=== PATIENT | female | born 1985 | race African-American/Black ===

== ENCOUNTER 2017-09-02 10:45 | Emergency (ER) | payer OTHER ==
[~2017-09-02] VITALS: Ht 167.6 cm; Wt 70.8 kg
[~2017-09-02 10:45] MED LIST: COLACE100 MG PO; DILAUDID2 M1; PERCOCET 5-3251 EACH PO; PHENERGAN 25 MG25 M1 PO
[2017-09-02 11:51] LABS: URINE BILIRUBIN NEGATIVE (Negative); URINE BLOOD NEGATIVE (Negative); URINE CLARITY CLEAR; URINE COLOR YELLOW; URINE GLUCOSE-RANDOM* NEGATIVE (Negative); URINE KETONES NEGATIVE (Negative); URINE LEUKOCYTES NEGATIVE (Negative); URINE NITRITE NEGATIVE (Negative); URINE PROTEIN (DIPSTICK) NEGATIVE (Negative); URINE SPECIFIC GRAVITY 1.015 (1.005-1.035); URINE UROBILINOGEN 0.2 E.U./dl (0.2-1.0)
[2017-09-02 12:09] LABS: ABSOLUTE NEUTROPHILS 6.9 thou/uL (1.4-8.2); BASOPHILS 0.4 % (0.0-2.0); HEMATOCRIT 44.1 % (37.0-47.0); HEMOGLOBIN 14.9 gm/dL (12.0-15.0); LYMPHOCYTES 22.1 % (24.0-44.0); MCH 28.7 pg (26.0-34.0); MCHC 33.8 g/dL (28.0-37.0); MCV 85.1 fL (80.0-100.0); MONOCYTES 5.5 % (1.0-8.0); PLATELET COUNT 220 thou/uL (150-400); RBC 5.18 mil/uL (4.20-5.00); RDW 13.3 % (10.5-14.5); WBC 9.7 thou/uL (4.0-11.0)
[2017-09-02 12:15] LABS: CALCIUM 9.8 mg/dL (8.5-10.1); CREATININE 1.1 mg/dL (0.6-1.0); POTASSIUM 4.1 mmol/L (3.5-5.1)
[2017-09-02 13:50] LABS: ALBUMIN 4.3 g/dL (3.4-5.0); DIRECT BILIRUBIN 0.1 mg/dL (<0.1-0.3); TOTAL BILIRUBIN 0.5 mg/dL (<0.1-1.0); TOTAL PROTEIN 8.1 g/dL (6.4-8.2)
[2017-09-02] MEDS ORDERED: MOBIC7.5 MG PO ×2 (16:20→16:24)
[2017-09-02] MEDS ORDERED: HYDROCODONE-AP1 EAC6 PO ×2 (16:20→16:24)
[2017-09-02] MEDS ORDERED: ONDANSETRON HCL4 M2 PO ×2 (16:20→16:24)
== END 2017-09-02 16:39 | disposition home or self-care (01) ==
LOC: ER 10:45
PROVIDERS: Physician Assistant
DX: N83.201 Unspecified ovarian cyst, right side (principal); N17.9 Acute kidney failure, unspecified; K76.9 Liver disease, unspecified; F17.210 Nicotine dependence, cigarettes, uncomplicated

== ENCOUNTER 2017-09-04 15:42 | Emergency (ER) | payer BC, OTHER ==
[~2017-09-04] VITALS: Ht 167.6 cm; Wt 70.8 kg
[~2017-09-04 15:42] MED LIST changes: +HYDROCODONE-AP1 EAC6 PO; +MOBIC7.5 MG PO; +ONDANSETRON HCL4 M2 PO
[2017-09-04] MEDS ORDERED: OTEZLA30 MG PO (16:39)
[2017-09-04 17:02] LABS: ABSOLUTE NEUTROPHILS 3.8 thou/uL (1.4-8.2); BASOPHILS 0.9 % (0.0-2.0); EOSINOPHILS 3.5 % (0.0-3.0); HEMATOCRIT 40.4 % (37.0-47.0); HEMOGLOBIN 13.5 gm/dL (12.0-15.0); LYMPHOCYTES 39.6 % (24.0-44.0); MCH 28.4 pg (26.0-34.0); MCHC 33.4 g/dL (28.0-37.0); MCV 84.8 fL (80.0-100.0); MONOCYTES 7.6 % (1.0-8.0); PLATELET COUNT 189 thou/uL (150-400); POLYS 48.4 % (36.0-66.0); RBC 4.76 mil/uL (4.20-5.00); RDW 13.2 % (10.5-14.5); WBC 7.8 thou/uL (4.0-11.0)
[2017-09-04 17:10] LABS: ANION GAP 9 mmol/L (7-16); BUN 12 mg/dL (7-18); CALCIUM 8.8 mg/dL (8.5-10.1); CHLORIDE 105 mmol/L (98-107); CO2 26 mmol/L (21-32); GLUCOSE 84 mg/dL (74-106); POTASSIUM 4.1 mmol/L (3.5-5.1); SODIUM 140 mmol/L (136-145)
[2017-09-04 17:17] LABS: ALBUMIN 3.7 g/dL (3.4-5.0); DIRECT BILIRUBIN < 0.1 mg/dL (<0.1-0.3); SGOT 14 U/L (15-37); SGPT 22 U/L (30-65); TOTAL BILIRUBIN 0.2 mg/dL (<0.1-1.0); TOTAL PROTEIN 7.2 g/dL (6.4-8.2)
[2017-09-04 17:41] LABS: URINE BILIRUBIN NEGATIVE (Negative); URINE BLOOD NEGATIVE (Negative); URINE CLARITY CLEAR; URINE COLOR YELLOW; URINE GLUCOSE-RANDOM* NEGATIVE (Negative); URINE KETONES NEGATIVE (Negative); URINE LEUKOCYTES-REFLEX NEGATIVE (Negative); URINE NITRITE-REFLEX NEGATIVE (Negative); URINE PROTEIN (DIPSTICK) NEGATIVE (Negative); URINE UROBILINOGEN 0.2 E.U./dl (0.2-1.0)
[2017-09-04] MEDS ORDERED: PERCOCET PO (18:36)
[2017-09-04] MEDS ORDERED: PROMS25 WY RECTAL (18:40)
== END 2017-09-04 19:09 | disposition home or self-care (01) ==
LOC: ER 15:42
PROVIDERS: Nurse Practitioner Family
DX: R10.31 Right lower quadrant pain (principal); F17.210 Nicotine dependence, cigarettes, uncomplicated

== ENCOUNTER 2017-09-29 21:33 | Emergency (ER) | payer BC, OTHER ==
[~2017-09-29] VITALS: Ht 167.6 cm; Wt 77.1 kg
[~2017-09-29 21:33] MED LIST changes: +OTEZLA30 MG PO; +PERCOCET PO; +PROMS25 WY RECTAL
[2017-09-29 21:58] LABS: ABSOLUTE NEUTROPHILS 5.4 thou/uL (1.4-8.2); BASOPHILS 0.9 % (0.0-2.0); EOSINOPHILS 4.1 % (0.0-3.0); HEMATOCRIT 38.8 % (37.0-47.0); HEMOGLOBIN 13.1 gm/dL (12.0-15.0); LYMPHOCYTES 35.4 % (24.0-44.0); MCH 28.3 pg (26.0-34.0); MCHC 33.7 g/dL (28.0-37.0); MCV 83.9 fL (80.0-100.0); MONOCYTES 7.7 % (1.0-8.0); PLATELET COUNT 196 thou/uL (150-400); POLYS 51.9 % (36.0-66.0); RBC 4.62 mil/uL (4.20-5.00); RDW 13.4 % (10.5-14.5); WBC 10.5 thou/uL (4.0-11.0)
[2017-09-29 22:07] LABS: CREATININE 0.8 mg/dL (0.6-1.0)
[2017-09-29 22:12] LABS: ALBUMIN 3.7 g/dL (3.4-5.0); TOTAL BILIRUBIN 0.2 mg/dL (<0.1-1.0); TOTAL PROTEIN 7.1 g/dL (6.4-8.2)
[2017-09-29] MEDS ORDERED: NORCO 5-325 TA1 EACH PO (23:56)
== END 2017-09-30 00:03 | disposition home or self-care (01) ==
LOC: ER 21:33
PROVIDERS: Physician Assistant
DX: G89.18 Other acute postprocedural pain (principal); R10.11 Right upper quadrant pain; F17.210 Nicotine dependence, cigarettes, uncomplicated

== ENCOUNTER 2021-06-06 10:38 | Emergency (ER) | payer OTHER ==
[~2021-06-06] VITALS: Ht 167.6 cm; Wt 81.7 kg
[~2021-06-06 10:38] MED LIST changes: +NORCO 5-325 TA1 EACH PO
[2021-06-06] MEDS ORDERED: BUPRENORPHINE-1 EACH SUBLING (10:49)
[2021-06-06 11:31] LABS: ABSOLUTE NEUTROPHILS 5.3 thou/uL (1.4-8.2); BASOPHILS 0.8 % (0.0-2.0); EOSINOPHILS 1.3 % (0.0-3.0); HEMATOCRIT 40.7 % (37.0-47.0); HEMOGLOBIN 13.5 gm/dL (12.0-15.0); LYMPHOCYTES 27.3 % (24.0-44.0); MCHC 33.1 g/dL (28.0-37.0); MCV 81.8 fL (80.0-100.0); MONOCYTES 7.2 % (1.0-8.0); PLATELET COUNT 214 thou/uL (150-400); POLYS 63.4 % (36.0-66.0); RBC 4.98 mil/uL (4.20-5.00); WBC 8.4 thou/uL (4.0-11.0)
[2021-06-06 11:38] LABS: URINE BILIRUBIN NEGATIVE (Negative); URINE BLOOD NEGATIVE (Negative); URINE CLARITY CLEAR; URINE COLOR YELLOW; URINE GLUCOSE-RANDOM* NEGATIVE (Negative); URINE KETONES NEGATIVE (Negative); URINE LEUKOCYTES-REFLEX NEGATIVE (Negative); URINE NITRITE-REFLEX NEGATIVE (Negative); URINE PROTEIN (DIPSTICK) NEGATIVE (Negative); URINE SPECIFIC GRAVITY >= 1.030 (1.005-1.035); URINE UROBILINOGEN 0.2 E.U./dl (0.2-1.0)
[2021-06-06 11:41] LABS: CALCIUM 9.1 mg/dL (8.5-10.1); CREATININE 0.9 mg/dL (0.6-1.0); POTASSIUM 3.9 mmol/L (3.5-5.1)
[2021-06-06 11:47] LABS: ALBUMIN 2.2 g/dL (3.4-5.0); TOTAL BILIRUBIN 0.4 mg/dL (0.2-1.0); TOTAL PROTEIN 7.6 g/dL (6.4-8.2)
[2021-06-06] MEDS ORDERED: ZOFRAN ODT4 MG PO (14:22)
[2021-06-06] MEDS ORDERED: CARAFATE1 GM PO (14:22)
[2021-06-06 14:28] VITALS: BP 114/74
--- NOTE | 2021-06-06 16:09 | EKG ---
[place] [address] [employer] [place] [address] ELECTROCARDIOGRAM REPORT Name: JUDSONPARI Christiano [id number] Admission: 06/06/21 Attend Phys: Discharge: 06/06/21 Date of : 87 Report #: [id number] [facility] ED Test Date: 2021-06-06 Test Time: 10:47:03 Pat Name: PARI ROPER Department: Room: Gender: F Transplanter: NGOC : 1985 Requested By: Shayla Berumen Order Number: [id number] MD: Chencho Echevarria Measurements Intervals [place] Rate: 93 P: 73 AR: 164 QRS: 73 QRSD: 85 T: -19 QT: 331 QTc: 412 Interpretive Statements Sinus rhythm Biatrial enlargement Borderline T abnormalities, inferior leads No previous ECG available for comparison Electronically Signed On 06-06-2021 16:08:58 CDT by Chencho Echevarria [email or web address] <ELECTRONICALLY SIGNED> By: Chencho Echevarria MD, [facility] 06/06/21 1608 [id number] Chencho Echevarria MD, FACC /EPI
== END 2021-06-06 14:29 | disposition home or self-care (01) ==
LOC: ER 10:38
PROVIDERS: Emergency Medicine
DX: R10.13 Epigastric pain (principal); L40.50 Arthropathic psoriasis, unspecified; F17.210 Nicotine dependence, cigarettes, uncomplicated; F12.90 Cannabis use, unspecified, uncomplicated; Z90.49 Acquired absence of other specified parts of digestive tract; Z98.890 Other specified postprocedural states; Z79.1 Long term (current) use of non-steroidal anti-inflammatories (NSAID); Z79.891 Long term (current) use of opiate analgesic; Z79.899 Other long term (current) drug therapy; Z91.040 Latex allergy status